=== PATIENT | female | born 1990 | race American Indian/Alaskan Native ===

== ENCOUNTER 2019-08-13 11:21 | Emergency (ER) | payer SELFPAY ==
[2019-08-13 11:28] VITALS: BP 131/66
--- NOTE | 2019-08-13 11:40 | Emergency Department Report ---
Chief Complaint: Earache Stated Complaint: RT EAR PAIN/LOSS OF HEARING Time Seen by Provider: 08/13/19 11:36 - HPI History of Present Illness: 29 y o female with no prior medical condition presents to Ed cc of right ear pressure and stuffiness x couples of days. Pt states she woke up this morning and felt her ear was worse She denies trauma, ear pain, loss of hearing, dizziness or any other symptoms - ROS Review of Systems: As noted in HPI - Exam Vital Signs: Vital Signs 08/13/19 11:23 Temperature 98.7 F Pulse Rate 83 Respiratory 18 Rate Blood Pressure 131/66 O2 Sat by Pulse 98 Oximetry Physical Exam: EAR: Right ear cerumen impaction no lac or trauma to ears bilat, partial TM visualized in right MSE screening note: Focused history and physical exam performed. Due to findings the following was ordered: ED Medical Decision Making - Medical Decision Making this 29-year-old female presents with earwax impaction. I discussed with the patient had this is not a medical emergency and patient is to follow up with the primary care physician. Vital signs are normal patient is in no acute distress. Patient understands instructions ED Disposition for MSE Clinical Impression: Excessive ear wax Disposition: Z-07 MED SCREENING EXAM-LEFT Is pt being admited?: No Does the pt Need Aspirin: No Condition: Stable Instructions: Cerumen Impaction (ED) Additional Instructions: Get Debrox ear wax drops from the pharmarcy and apply to ear as instructed on pack Referrals: [facility] [Outside] - 3-5 Days [facility] [Outside] - 3-5 Days Forms: Work/School Release Form(ED) Time of Disposition: 11:38
== END 2019-08-13 11:36 | disposition left against medical advice (07) ==
LOC: ED 11:21
DX: H92.02 Otalgia, left ear (principal); Z53.21 Procedure and treatment not carried out due to patient leaving prior to being seen by health care provider

== ENCOUNTER 2019-09-21 23:00 | Emergency (ER) | payer MEDICARE, MEDICAID ==
[2019-09-21] MEDS ORDERED: IBUPROFEN 600 MG TAB PO ONE (23:36)
[2019-09-21] MEDS ORDERED: ONDANSETRON 4 MG ODT TAB PO ONE (23:36)
[2019-09-21] MEDS ORDERED: ACETAMINOPHEN 500 MG TAB PO ONE (23:36)
--- NOTE | 2019-09-22 00:26 | XRay Report ---
CHEST 2 VIEWS, 09/21/2019 11:55 PM INDICATION: Cough COMPARISON: None FINDINGS: Support devices: None Heart: The heart is normal in size. Lungs/pleura: The lungs are well expanded and appear clear. Additional findings: Evaluation of bony structures demonstrates no evidence of acute bony abnormality . IMPRESSION: 1. No evidence of acute cardiopulmonary process. Signer Name: Livier Lamar MD Signed: 09/22/2019 12:22 AM Workstation Name: [id number]
[2019-09-22] MEDS ORDERED: ONDANSETRON 4 MG ODT TAB ONE (04:53)
[2019-09-22] MEDS ORDERED: IBUPROFEN 600 MG TAB PO ONE ×2 (04:53→04:55)
[2019-09-22] MEDS ORDERED: ONDANSETRON 4 MG ODT TAB PO ONE (04:55)
[2019-09-22] MEDS ORDERED: methylPREDNISolone Sod Succinate 125 MG/2 ML INJ IM ONE (05:09)
[2019-09-22] MEDS ORDERED: IPRATROPIUM/ALBUTEROL SULFATE 3 ML AMPUL.NEB IH ONE (05:09)
[2019-09-22 05:55] LABS: Bilirubin,Urine NEG (Negative); Blood,Urine NEG (Negative); Color,Urine Yellow (Yellow); Protein,Urine <15 mg/dL mg/dL (Negative); Urobilinogen,Urine < 2.0 mg/dL (<2.0)
[2019-09-22 05:56] LABS: Mucus,Urine FEW /HPF
--- NOTE | 2019-09-22 06:49 | Emergency Department Report ---
- General Chief Complaint: Upper Respiratory Infection Stated Complaint: FLU SYMPTOMS Source: patient Mode of arrival: Ambulatory Limitations: No Limitations - History of Present Illness Initial Comments: Patient is a 29-year-old female with no past medical history who presents to the ED with continued acute onset persistent nasal and sinus congestion, frontal sinus pressure, dry cough, severe sore throat, diffuse body aches and pains and intermittent fever of 101F with chills and lack of appetite for the last 1 week. Patient also complains of nausea and vomiting intermittently. Patient also states that her symptoms got worse in the last 2 days. Patient states that she was initially evaluated and diagnosed with influenza about a week ago but was not given any medications. Patient states that symptoms are worsened recently last 2 days and that in the last 12 hours she is not been able to eat anything or keep anything down because of persistent nausea and vomiting and worsening fever. Patient denies chest pain, shortness of breath, dysuria, urinary frequency and urgency, vaginal bleeding, syncope, abdominal pain or diarrhea. MD Complaint: fever, cough, sore throat, rhinorrhea, nasal congestion, sinus pain -: Sudden, week(s) (1) Severity: severe Severity scale (0 -10): 7 Quality: sharp, aching Consistency: constant Improves With: nothing Worsens With: nothing Context: sick contacts Associated Symptoms: fever, chills, myalgias, headache, rhinorrhea, nasal congestion, sore throat, cough, nausea, vomiting. denies: chest pain, shortness of breath, abdominal pain, diarrhea, dysuria, confusion, right sweats, weight loss, epistaxis, hoarseness, ear pain, other Treatments Prior to Arrival: none - Related Data Previous Rx's Medication Instructions Recorded Last Taken Type Albuterol INH(or & Nicu Only) 1 - 2 puff IH Q6H PRN #1 inh 09/22/19 Unknown Rx [ProAir HFA Inhaler] Amoxicillin/Potassium Clav 1 each PO Q12H #20 tablet 09/22/19 Unknown Rx [Augmentin 875-125 Tablet] Benzonatate [Tessalon Perles] 100 mg PO Q8HR #30 capsule 09/22/19 Unknown Rx Cetirizine HCl [Zyrtec 10mg tab] 10 mg PO DAILY #30 tablet 09/22/19 Unknown Rx Ibuprofen [Motrin] 800 mg PO Q8HR PRN #24 tablet 09/22/19 Unknown Rx Lidocaine Viscous 2% 10 ml PO Q6H PRN #120 ml 09/22/19 Unknown Rx Ondansetron [Zofran Odt] 4 mg PO Q8HR PRN #15 tab.rapdis 09/22/19 Unknown Rx methylPREDNISolone [Medrol 4MG 4 mg PO DAILY #21 tab.ds.pk 09/22/19 Unknown Rx DOSEPAK (21 tabs)] Allergies Allergy/AdvReac Type Severity Reaction Status Date / Time No Known Allergies Allergy Verified 09/22/19 04:54 ED Review of Systems ROS: Stated complaint: FLU SYMPTOMS Other details as noted in HPI Constitutional: chills, fever, malaise Eyes: denies: eye pain, eye discharge, vision change ENT: throat pain, congestion. denies: ear pain Respiratory: cough, wheezing. denies: shortness of breath Cardiovascular: denies: chest pain, palpitations Endocrine: no symptoms reported Gastrointestinal: denies: abdominal pain, nausea, diarrhea Genitourinary: denies: urgency, dysuria, discharge Musculoskeletal: denies: back pain, joint swelling, arthralgia Skin: denies: rash, lesions Neurological: headache. denies: weakness, paresthesias Psychiatric: denies: anxiety, depression Hematological/Lymphatic: denies: easy bleeding, easy bruising ED Past Medical Hx - Past Medical History Previous Medical History?: Yes Hx Asthma: Yes - Surgical History Past Surgical History?: Yes Additional Surgical History: D&C - Social History Smoking Status: Former Smoker Substance Use Type: None - Medications Home Medications: Home Medications Medication Instructions Recorded Confirmed Last Taken Type Albuterol INH(or & Nicu Only) 1 - 2 puff IH Q6H PRN #1 inh 09/22/19 Unknown Rx [ProAir HFA Inhaler] Amoxicillin/Potassium Clav 1 each PO Q12H #20 tablet 09/22/19 Unknown Rx [Augmentin 875-125 Tablet] Benzonatate [Tessalon Perles] 100 mg PO Q8HR #30 capsule 09/22/19 Unknown Rx Cetirizine HCl [Zyrtec 10mg tab] 10 mg PO DAILY #30 tablet 09/22/19 Unknown Rx Ibuprofen [Motrin] 800 mg PO Q8HR PRN #24 tablet 09/22/19 Unknown Rx Lidocaine Viscous 2% 10 ml PO Q6H PRN #120 ml 09/22/19 Unknown Rx Ondansetron [Zofran Odt] 4 mg PO Q8HR PRN #15 tab.rapdis 09/22/19 Unknown Rx methylPREDNISolone [Medrol 4MG 4 mg PO DAILY #21 tab.ds.pk 09/22/19 Unknown Rx DOSEPAK (21 tabs)] ED Physical Exam - General Limitations: No Limitations General appearance: alert, in no apparent distress - Head Head exam: Present: atraumatic, normocephalic, normal inspection - Eye Eye exam: Present: normal appearance, PERRL, EOMI Pupils: Present: normal accommodation - ENT ENT exam: Present: mucous membranes moist, TM's normal bilaterally, normal external ear exam, other (grossly congested nasal passages with frontal sinus tenderness; erythematous oropharynx and tonsils) - Neck Neck exam: Present: normal inspection, full ROM - Respiratory Respiratory exam: Present: wheezes. Absent: respiratory distress, rales, rhonchi, chest wall tenderness, accessory muscle use, decreased breath sounds, prolonged expiratory - Cardiovascular Cardiovascular Exam: Present: normal rhythm, tachycardia, normal heart sounds. Absent: systolic murmur, diastolic murmur, rubs, gallop - GI/Abdominal GI/Abdominal exam: Present: soft, normal bowel sounds. Absent: tenderness, guarding, rebound, hyperactive bowel sounds, hypoactive bowel sounds, organomegaly - Extremities Exam Extremities exam: Present: normal inspection, full ROM, normal capillary refill - Back Exam Back exam: Present: normal inspection, full ROM. Absent: tenderness, CVA tenderness (L), muscle spasm, paraspinal tenderness, vertebral tenderness - Neurological Exam Neurological exam: Present: alert, oriented X3, CN II-XII intact, normal gait, reflexes normal - Psychiatric Psychiatric exam: Present: normal affect, normal mood - Skin Skin exam: Present: warm, dry, intact, normal color. Absent: rash ED Course Vital Signs 09/21/19 23:31 Temperature 101.0 F H Pulse Rate 102 H Respiratory 20 Rate Blood Pressure 130/70 O2 Sat by Pulse 99 Oximetry ED Medical Decision Making - Radiology Data Radiology results: report reviewed, image reviewed Chest x-ray shows no acute cardiopulmonary abnormalities or pneumonitis. - Medical Decision Making This is a 29-year-old female who presented to the ED with persistent nasal and sinus congestion, frontal sinus pressure and headache, sore throat, intermittent fever over 102F with chills, dry cough with persistent intermittent wheezing and shortness of breath for one week. Patient stated that she had been diagnosed with influenza about a week ago and was not discharged on any medications. Patient states that in the last 3 days her symptoms were worse. In the ED, patient is alert and oriented 3 and is not in distress but tachycardic and febrile in triage. Chest x-ray shows no acute cardiopulmonary abnormalities or pneumonitis. Urinalysis is nonactionable. Patient was treated in the ED, also treated for nausea and vomiting, also given DuoNeb treatment with steroids. On reevaluation, patient's wheezing resolved and fever and tachycardic also resolved. Patient was discharged home on medications and advised to follow-up with her primary care physician in 5-7 days for reevaluation or return to the ED immediately if symptoms get worse. - Differential Diagnosis FLU; Pneumonia; Strep pharyngitis; bronchitis; URI Critical care attestation.: If time is entered above; I have spent that time in minutes in the direct care of this critically ill patient, excluding procedure time. ED Disposition Clinical Impression: Acute upper respiratory infection, Influenza, Fever and chills, Nausea and vomiting in adult Acute bronchitis Qualifiers: Bronchitis organism: other organism Qualified Code(s): J20.8 - Acute bronchitis due to other specified organisms Acute pharyngitis Qualifiers: Pharyngitis/tonsillitis etiology: unspecified etiology Qualified Code(s): J02.9 - Acute pharyngitis, unspecified Disposition: DC- TO HOME OR SELFCARE Is pt being admited?: No Does the pt Need Aspirin: No Condition: Stable Instructions: Acute Bronchitis (ED), Upper Respiratory Infection (ED), Pharyngitis (ED), Influenza (ED), Acute Nausea and Vomiting (ED), Fever in Adults (ED) Additional Instructions: Take medications with food, drink plenty of fluids and follow-up with your primary care physician in 7-10 days for reevaluation. Return to the ED immediately if symptoms get worse. Prescriptions: Amoxicillin/Potassium Clav [Augmentin 875-125 Tablet] 1 each PO Q12H #20 tablet Lidocaine Viscous 2% 10 ml PO Q6H PRN #120 ml PRN Reason: Pain , Severe (7-10) methylPREDNISolone [Medrol 4MG DOSEPAK (21 tabs)] 4 mg PO DAILY #21 tab.ds.pk Ibuprofen [Motrin] 800 mg PO Q8HR PRN #24 tablet PRN Reason: Pain , Severe (7-10) Albuterol INH(or & Nicu Only) [ProAir HFA Inhaler] 1 - 2 puff IH Q6H PRN #1 inh PRN Reason: Dyspnea Benzonatate [Tessalon Perles] 100 mg PO Q8HR #30 capsule Ondansetron [Zofran Odt] 4 mg PO Q8HR PRN #15 tab.rapdis PRN Reason: Nausea Cetirizine HCl [Zyrtec 10mg tab] 10 mg PO DAILY #30 tablet Referrals: [facility] [Outside] - 7-10 days Time of Disposition: 06:51 Print Language: [place]
[2019-09-22 07:49] VITALS: BP 124/81
== END 2019-09-22 07:11 | disposition home or self-care (01) ==
LOC: ED 23:00
DX: J06.9 Acute upper respiratory infection, unspecified (principal); J02.9 Acute pharyngitis, unspecified; R11.2 Nausea with vomiting, unspecified; J45.909 Unspecified asthma, uncomplicated; Z98.890 Other specified postprocedural states; Z87.891 Personal history of nicotine dependence; Z79.1 Long term (current) use of non-steroidal anti-inflammatories (NSAID); Z79.2 Long term (current) use of antibiotics; Z79.899 Other long term (current) drug therapy
CPT/HCPCS: 71046; 81001; 94640; 96372; 99284; J2930; Q0162